=== PATIENT | male | born 1940 | race Caucasian/White ===

== ENCOUNTER 2020-03-05 09:30 | Inpatient (IN) ==
[~2020-03-05 09:30] MED LIST: Buffered Lidocaine 1% SYRIN 1 ml INTRADERM ONE; Dexamethasone IV 4 MG/ML VIAL 1 ml VIAL IV SLOW PU ONE; Lactated Ringers 1000 ml BAG 1,000 ML IV SCH
[2020-03-05] MEDS ORDERED: Midazolam 2 mg/2 ml VIAL 1 mg/ml 2 ml VIAL (2 mg) ONE (12:00)
[2020-03-05] MEDS ORDERED: fentaNYL 100 mcg/2 ml 50 MCG/ML VIAL ONE ×2 (12:00→20:20)
[2020-03-05] MEDS ORDERED: Rocuronium 50 mg VIAL 10 mg/ml 5 ml VIAL (50 mg) ONE (12:01)
[2020-03-05] MEDS ORDERED: Lidocaine 2% PF 5 ML VIAL ONE (12:01)
[2020-03-05] MEDS ORDERED: Dexamethasone IV 4 MG/ML VIAL 1 ml VIAL ONE (12:48)
[2020-03-05] MEDS ORDERED: ceFAZolin 2 GM PREMIX 2 GM/50 ML BAG ONE (12:48)
[2020-03-05] MEDS ORDERED: ROPIVACAINE 5 MG/ML 30 ML BTL (0.5%) ONE ×2 (13:52→14:24)
[2020-03-05 14:17] LABS: INR 1.23 (0.82-1.09)
[2020-03-05] MEDS ORDERED: Lidocaine 2% PF 10 ML AMP ONE (14:23)
[2020-03-05] MEDS ORDERED: diPHENhydraMINE 25 mg TAB PO PRN (15:11)
[2020-03-05] MEDS ORDERED: Lactulose 30 ml UDC PO PRN (15:11)
[2020-03-05] MEDS ORDERED: Ondansetron 4 mg VIAL 2 MG/ML 2 ml VIAL IV PRN ×2 (15:11→16:12)
[2020-03-05] MEDS ORDERED: oxyCODONE/Acetamin 5/325 mg TAB PO PRN (15:11)
[2020-03-05] MEDS ORDERED: Magnesium Hydroxide LIQ 30 ML UDC PO PRN (15:11)
[2020-03-05] MEDS ORDERED: Ondansetron ODT 4 mg TAB 4 MG TAB PO PRN (15:11)
[2020-03-05] MEDS ORDERED: Morphine 2 MG/ML SYRINGE IV PRN (15:11)
[2020-03-05] MEDS ORDERED: diPHENhydraMINE IV 50 MG/ML 1 ml VIAL (BENADRYL) IV PRN (15:11)
[2020-03-05] MEDS ORDERED: Dextrose 50% Syringe 50 ml 25 GM/50 ML SYRINGE IV PUSH PRN (15:33)
[2020-03-05] MEDS ORDERED: Phenylephrine 40 mcg/mL 10mL (400mcg) SYRINGE ONE (15:45)
[2020-03-05] MEDS ORDERED: Propofol 10 MG/ML 20 ML BTL ONE (15:45)
[2020-03-05] MEDS ORDERED: EPHEDrine (Pressors) 50 MG/ML VIAL ONE (15:45)
[2020-03-05] MEDS ORDERED: Lactated Ringers 1000 ml BAG 1,000 ML IV SCH (16:00)
[2020-03-05] MEDS ORDERED: HYDROmorphone 1 MG/1 ML SYRINGE IV PRN (16:12)
[2020-03-05] MEDS ORDERED: Naloxone 0.4 mg VIAL 0.4 mg/ml 1 ml VIAL IV PRN (16:12)
[2020-03-05] MEDS ORDERED: oxyCODONE/Acetamin 5/325 mg TAB ONE (20:20)
[2020-03-05] MEDS: fentaNYL 100 mcg/2 ml 50 MCG/ML VIAL IV PRN ×4 (20:21→21:12)
[2020-03-05] MEDS ORDERED: HYDROmorphone 1 MG/1 ML SYRINGE ONE (21:25)
[2020-03-05] MEDS ORDERED: Metoprolol Tartrate 5 mg VIAL 5 ml VIAL (1 mg/ml) IV ONE (21:45)
[2020-03-05] MEDS ORDERED: Metoprolol Tartrate 5 mg VIAL 5 ml VIAL (1 mg/ml) ONE (21:46)
[2020-03-05] MEDS: Magnesium Hydroxide LIQ 30 ML UDC PO SCH (23:34)
[2020-03-05] MEDS: ceFAZolin 1 GM ADVAN 1 GM in NS 0.9% 50 ML 50 ML IVPB SCH (23:34)
[2020-03-06] MEDS: oxyCODONE/Acetamin 5/325 mg TAB PO PRN ×3 (00:49→10:18)
[2020-03-06] MEDS ORDERED: Metoprolol Tartrate 5 mg VIAL 5 ml VIAL (1 mg/ml) IV ONE (02:58)
[2020-03-06] MEDS: ceFAZolin 1 GM ADVAN 1 GM in NS 0.9% 50 ML 50 ML IVPB SCH ×2 (06:06→13:32)
[2020-03-06 06:08] LABS: Hematocrit 34 % (42-52); Hemoglobin 11.9 g/dL (14.0-18.0); Mean Platelet Volume 7.7 fL (7.4-10.4); Platelet Count 298 10^3/uL (150-450)
[2020-03-06 06:14] LABS: INR 1.25 (0.82-1.09)
[2020-03-06 06:28] LABS: BUN/Creatinine Ratio 21.3 (8-20); Calcium 9.1 mg/dL (8.6-10.3); EGFR African American 154.3 (>60); EGFR Non-African American 127.5 (>60); Potassium 4.4 mmol/L (3.5-5.0)
[2020-03-06] MEDS ORDERED: Vitamin THERAPEUTIC TAB PO SCH (09:00)
[2020-03-06] MEDS: Magnesium Hydroxide LIQ 30 ML UDC PO SCH (10:17)
[2020-03-06] MEDS ORDERED: Enoxaparin 40 MG/0.4 ML SYR SUBCUT SCH (12:00)
[2020-03-06 12:13] VITALS: BP 130/81
== END 2020-03-06 14:54 | disposition home or self-care (01) | DRG 470 ==
LOC: SSU 22:00
PROVIDERS: ADMIT Orthopaedic Surgery Adult Reconstructive Orthopaedic Surgery; ATTEND Orthopaedic Surgery Adult Reconstructive Orthopaedic Surgery